=== PATIENT | male | born 1940 | race Caucasian/White ===

== ENCOUNTER → 2016-05-06 | Outpatient (REF) ==
[~2016-05-06] MED LIST: ASPIRIN E.C. 8181 MG PO; EFFIENT10 MG PO; FLOMAX 0.40.4 MG/CAP PO; LEVAQUIN 250MG250 MG PO; LIPITOR20 MG PO; NITROSTAT0.4 MG/TAB SL; NORCO 325 MG-51 TAB PO; OMEPRAZOLE40 MG PO; PRIL40 PO; PYRIDIUM200 M1 PO; RAPAFLO8 MG PO; SYNTHROID0.05 MG/TA PO; SYSTANE LUBRICAN5 ML OP; TOPROL XL 25MG25 MG PO; VICODIN 5/5001 UDTAB PO; [UNRECOGNIZED DRUG - OTHER] PO
== END ==
LOC: ZLAB.WCH 15:48
DX: Z01.89 Encounter for other specified special examinations (principal)
CPT/HCPCS: G0103

== ENCOUNTER → 2017-05-24 | Outpatient (REF) ==
[2017-05-24 19:02] LABS: PSA-TOTAL 0.45 ng/mL (0-4)
[2017-05-24 19:50] LABS: THYROID STIMULATING HORMONE 4.08 uIU/mL (0.465-4.680)
== END ==
LOC: ZLAB.WCH 18:05
PROVIDERS: Family Medicine
DX: Z01.89 Encounter for other specified special examinations (principal)
CPT/HCPCS: G0103

== ENCOUNTER → 2018-06-13 | Outpatient (REF) ==
[2018-06-13 16:47] LABS: THYROID STIMULATING HORMONE 3.93 uIU/mL (0.465-4.680)
[2018-06-13 16:54] LABS: PSA-TOTAL 0.26 ng/mL (0-4)
== END ==
LOC: ZLAB.WCH 15:58
PROVIDERS: Family Medicine
DX: Z01.89 Encounter for other specified special examinations (principal)
CPT/HCPCS: G0103

== ENCOUNTER → 2019-01-30 | Outpatient (CLI) | payer MEDICARE, BC | LOC: COL.PUL 09:47 | DX: R06.02 Shortness of breath (principal) | CPT/HCPCS: J7674 ==

== ENCOUNTER 2019-05-28 10:26 | Day surgery (SDC) | payer MEDICARE, BC ==
[~2019-05-28] VITALS: Ht 170.2 cm; Wt 89.0 kg
[~2019-05-28 10:26] MED LIST changes: +CARTIA XT180 MG PO; +LIPITOR 10MG10 MG PO; +MASON NATURAL1200 MG PO; +PEPCID 20MG TAB20 MG PO; +REFRESH 1 ML1 ML OP; +RT ADVAIR HFA 1112 G IH; +VITAMIN D250 MCG PO; +ZESTRIL2.5 MG PO
[2019-05-28] MEDS ORDERED: ALLEGRA 180MG180 MG PO (11:09)
[2019-05-28 11:11] VITALS: BP 151/43; PULSE 59; TEMP 97.7
[2019-05-28 13:30] VITALS: BP 134/52; PULSE 60; TEMP 97.1
--- NOTE | 2019-05-28 13:30 | NUR ---
Patient arrives to [facility] [place] [facility] for recovery via cart, accompanied by CIT[employer]EN [employer]IST Courtney. Patient is sitting up in bed, drinking water. He denies any pain or nausea. Monitoring is applied - VSS and WNL on room air. His is downstairs getting lunch. He is offered and receives Sprite and a pudding. Call light in reach. Will continue to monitor.
[2019-05-28 13:45] VITALS: BP 146/49; PULSE 55
--- NOTE | 2019-05-28 13:45 | NUR ---
VSS and WNL on room air. Denies pain or nausea at this time.
[2019-05-28 14:00] VITALS: BP 154/50; PULSE 53
[2019-05-28 14:15] VITALS: BP 152/39; PULSE 52
--- NOTE | 2019-05-28 14:15 | NUR ---
VSS and WNL on room air. He denies pain, nausea, or need. Tolerating PO well. He is escorted to the restroom. He voids pink urine with small amount of clots and returns to room.
--- NOTE | 2019-05-28 14:38 | NUR ---
Discharge criteria has been met. Discharge instructions discussed with patient and his . They deny any questions and verbalize understanding. PIV removed with catheter intact and hemostasis achieved. He is changing to his clothing with his 's assistance.
--- NOTE | 2019-05-28 14:51 | NUR ---
Patient is escorted to the exit via wheelchair by staff. Discharged to home with ride in private vehicle at 1451.
[2019-05-28 15:15] VITALS: BP 129/71; PULSE 63
== END 2019-05-28 14:51 | disposition home or self-care (01) ==
LOC: SDCO 10:26
DX: C67.6 Malignant neoplasm of ureteric orifice (principal); C67.0 Malignant neoplasm of trigone of bladder; C91.10 Chronic lymphocytic leukemia of B-cell type not having achieved remission; Z87.891 Personal history of nicotine dependence; I48.91 Unspecified atrial fibrillation; I25.10 Atherosclerotic heart disease of native coronary artery without angina pectoris; I10 Essential (primary) hypertension; K21.9 Gastro-esophageal reflux disease without esophagitis; E03.9 Hypothyroidism, unspecified; K58.9 Irritable bowel syndrome, unspecified; E55.9 Vitamin D deficiency, unspecified; Z79.82 Long term (current) use of aspirin; Z79.899 Other long term (current) drug therapy; J45.909 Unspecified asthma, uncomplicated; Z80.0 Family history of malignant neoplasm of digestive organs; Z80.2 Family history of malignant neoplasm of other respiratory and intrathoracic organs; Z98.61 Coronary angioplasty status; I47.1 Supraventricular tachycardia; I35.1 Nonrheumatic aortic (valve) insufficiency
CPT/HCPCS: C1769; J0690; J1100; J2405; J2704; J3010; J7120; Q9967

== ENCOUNTER 2020-11-24 13:18 | Day surgery (SDC) | payer MEDICARE, BC ==
[2020-11-24] VITALS (11 sets, daily range): BP systolic 130–169; BP diastolic 47–77; PULSE 50–58; TEMP 97.2–98
[~2020-11-24] VITALS: Ht 170.2 cm; Wt 88.0 kg
[~2020-11-24 13:18] MED LIST changes: +ALLEGRA 180MG180 MG PO
[2020-11-24] MEDS ORDERED: PRINIVIL2.5 MG PO (14:35)
--- NOTE | 2020-11-24 16:30 | NUR ---
PT ADMITTED TO ROOM 326 @ 1615. PT IS TRANSFERRED INTO ROOM BED WITH MINIMAL ASSISTANCE. PT IS ALERT ET ORIENTED, DENIES ANY PAIN, SOB OR NAUSEA. OXYGEN IS ON @ 2L VIA NC. HEART SOUNDS ARE REGULAR, LUNGS ARE CLEAR. URINE IS CLOUDY ET PALE YELLOW. CBI IS DECREASED TO A SLOW RATE. PT IS TAKEN ICE WATER TO DRINK. ARRIVES @ BEDSIDE.
[2020-11-24] MEDS ORDERED: FLONASEALLERGY NS (17:13)
[2020-11-24] MEDS ORDERED: MASON NATURAL2000 IU PO (17:14)
--- NOTE | 2020-11-24 18:19 | NUR ---
PT DOING WELL, DENIES ANY PAIN, EXPRESSES THAT HE IS HUNGRY THOUGH. HE HAS ORDERED HIS MEAL TRAY FROM DIETARY BUT IT HAS NOT YET ARRIVED. JELLO CUP GIVEN TO PT. CBI IS @ A SLOW RATE, URINE IN FARIAS BAG IS PALE YELLOW. CALL LIGHT WITHIN REACH, PT DENIES OTHER NEEDS @ THIS TIME.
--- NOTE | 2020-11-24 20:00 | NUR ---
PATIENT SITTING IN BED. PATIENT ALERT AND ORINETED X4. PATIENT HAS CBI RUNNING. OUTPUT IS YELLOW AND CLEAR. PATIENT HAS 20G IV TO THE LEFT HAND AND IS ON 2L O2. HELPED PATIENT GET READY FOR BED. PATIENT DENIED PAIN OR FURTHER NEEDS AT THIS TIME. HEAD TO TOE ASSESSMENT COMPLETE. CALL LIGHT WITHIN REACH.
[2020-11-25 03:38] VITALS: BP 133/42; PULSE 50; TEMP 97.9
--- NOTE | 2020-11-25 06:24 | NUR ---
PATIENT DID WELL THROUGHOUT NIGHT. PATIENT SLEPT THROUGH NIGHT. CBI SLOWLY RUNNING OUTPUT YELLOW AND CLEAR. PATIENT DENIED PAIN THROUGHOUT NIGHT. WILL REPORT TO DAY SHIFT.
[2020-11-25 08:05] VITALS: BP 143/46; PULSE 51; TEMP 97.5
--- NOTE | 2020-11-25 09:00 | NUR ---
Patient alert and oriented, answers questions appropriately. See assessment. Jenkins catheter patent, draining clear yellow urine. CBI stopped at 0700 this a.m. No c/o pain or discomfort.
--- NOTE | 2020-11-25 09:32 | NUR ---
Initial visit; Patient thanked Telegraph Editor for looking in on him and offering prayer, encouragement and God's blessings. Zain was receptive to having Telegraph Editor keep him in her prayers.
--- NOTE | 2020-11-25 10:35 | NUR ---
Pt education regarding mitomycin instillation completed with pt and his at bedside. Mitomycin verified correct with Juanita Chatman RN by comparing printed label and printed order in computer. Pt has orozco draining pale yellow urine with scant red sediment in tubing. he has already signed consent for mitomycin administration. Orozco drained and clamped. Using appropriate chemotherapy PPE, mitomycin instilled into bladder without difficulty. Pt instructed to reposition every 15 minutes and will be reminded by his who has a timer.Primary nurse Dee notified of instillation. Chemotherapy signage posted.
--- NOTE | 2020-11-25 11:20 | NUR ---
Pt seen by Dr Dominguez at this time. He is still tolerating the mitomycin in his bladder but has expressed concern about having to wait another hour. He has been advised that when he reaches the point he cannot tolerate this anymore, he will notify nursing.
[2020-11-25 11:34] VITALS: BP 162/65; PULSE 63; TEMP 97.8
--- NOTE | 2020-11-25 12:14 | NUR ---
Pt reported that he could not stand retention of his mitomycin at 1143 any longer. The clamp was released and 500 ml of clear bluish yellow urine was drained. CBI was used to flush out the bladder x250ml and then his orozco catheter was removed after deflating his 20ml balloon. Chemotherapy PPE was used and orozco bag with urine was bagged and placed with other waste in yellow container. I reviewed precautions again with Zain and Pam who verbalized understanding. Report to Dee ISIDRO and she will follow up with pt about 6 bottle routine. Pt is ordering lunch at this time.
--- NOTE | 2020-11-25 13:35 | NUR ---
Jenkins catheter discontinued by DWAINE Watkins at 1125.
--- NOTE | 2020-11-25 13:57 | NUR ---
Discharge instructions reviewed reviewed with patient, verbalized understanding. Discharged ambulatory to auto/home with spouse at 1355.
== END 2020-11-25 13:55 | disposition home or self-care (01) ==
LOC: SDCO 13:18 → SURG 16:15 → SDCO 11-25 13:55
DX: C67.2 Malignant neoplasm of lateral wall of bladder (principal); I48.91 Unspecified atrial fibrillation; J45.909 Unspecified asthma, uncomplicated; I25.10 Atherosclerotic heart disease of native coronary artery without angina pectoris; Z85.6 Personal history of leukemia; K21.9 Gastro-esophageal reflux disease without esophagitis; E78.5 Hyperlipidemia, unspecified; I10 Essential (primary) hypertension; E03.9 Hypothyroidism, unspecified; K58.9 Irritable bowel syndrome, unspecified; E55.9 Vitamin D deficiency, unspecified; Z90.89 Acquired absence of other organs; Z90.49 Acquired absence of other specified parts of digestive tract; Z79.899 Other long term (current) drug therapy; Z79.890 Hormone replacement therapy; Z87.891 Personal history of nicotine dependence; M19.90 Unspecified osteoarthritis, unspecified site
CPT/HCPCS: OP; J0690; J1100; J2405; J2704; J3010; J3480; J7120; J9280; Q9967